=== PATIENT | male | born 1955 | race Caucasian/White ===

== ENCOUNTER → 2017-08-15 | Outpatient (CLI) | payer MEDICAID ==
[~2017-08-15] MED LIST: MEDROL 4MG. DOSE4 MG PO; ULTRAM 50 MG TA50 MG PO
[2017-08-15 11:00] VITALS: BP 158/94
[2017-08-15 11:15] VITALS: BP 173/97
--- NOTE | 2017-08-16 09:00 | RADIOLOGY REPORT PS360 ---
CT CHEST W/O CONTRAST HISTORY: , Smoker, shortness of breath, abnormal chest x-ray, right upper lobe pulmonary nodule CURRENT SMOKER,SHORTNESS OF BREATH ORDERING PHYSICIAN: ANDREWS LEÓN MD PATIENT AGE: 62 years TECHNIQUE: Axial images obtained without contrast. Sagittal and coronal reformatted images are also generated and reviewed. COMPARISON: None FINDINGS: There are calcified nodes within the mediastinum and marlys. Coronary artery calcifications are also present. No mediastinal or hilar mass or adenopathy. Normal heart size. No pericardial thickening. No aortic aneurysm There is biapical scarring with paraseptal emphysematous changes and hyperinflation with attenuation of the peripheral pulmonary vessels consistent with obstructive chronic bronchitis. Previously noted nodule in the right upper lobe represents a calcified granuloma. No lobar consolidation or collapse is evident. No suspicious pulmonary nodules, lobar consolidation, collapse, or effusions. No acute bony anomalies. Upper abdominal images are unremarkable. IMPRESSION: 1. Obstructive chronic bronchitis with paraseptal emphysematous changes 2. Old granulomatous disease. 3. Coronary artery disease. 4. No acute finding
== END ==
LOC: RT 09:39
DX: R06.09 Other forms of dyspnea (principal); F17.200 Nicotine dependence, unspecified, uncomplicated